=== PATIENT | male | born 1975 | race Caucasian/White ===

== ENCOUNTER 2018-06-25 02:32 | Emergency (ER) | payer BC, MEDICAID ==
[~2018-06-25] VITALS: Ht 172.7 cm; Wt 72.6 kg
[2018-06-25 02:39] VITALS: BP 158/114
[2018-06-25] MEDS ORDERED: LORAZEPAM 0.5 MG TABLET ONE (03:09)
[2018-06-25] MEDS ORDERED: LORAZEPAM 0.5 MG TABLET PO ONE (03:30)
== END 2018-06-25 04:24 | disposition home or self-care (01) ==
LOC: ER 02:36
DX: F41.9 Anxiety disorder, unspecified (principal); J40 Bronchitis, not specified as acute or chronic

== ENCOUNTER 2021-10-10 21:01 | Emergency (ER) | payer BC ==
[~2021-10-10] VITALS: Ht 172.7 cm; Wt 65.8 kg
[2021-10-10 21:24] VITALS: BP 183/122
[2021-10-10] MEDS ORDERED: AMOX-430 PO (22:06)
== END 2021-10-10 22:10 | disposition home or self-care (01) ==
LOC: ER 21:04
DX: J31.0 Chronic rhinitis (principal); J32.9 Chronic sinusitis, unspecified

== ENCOUNTER 2021-11-06 21:39 | Emergency (ER) | payer BC ==
[~2021-11-06] VITALS: Ht 172.7 cm; Wt 63.5 kg
[~2021-11-06 21:39] MED LIST: AMOX-430 PO
--- NOTE | 2021-11-06 22:13 | NUR ---
BIBFRIEND. FEELING SOB AND WEEK TODAY. TWITCHING SENSATION MID CHEST. PT AWAKE AND ALERT BREATHING EVEN AND UNLABORED. ASSISTED TO ER 12 AND PLACED ON MONITOR AND V/S WNL.
[2021-11-06] MEDS ORDERED: IV NS 0.9% 1,000 ML BAG IV ONE (22:30)
--- NOTE | 2021-11-06 22:31 | NUR ---
BLOOD COLLECTED AND SENTT O LAB
--- NOTE | 2021-11-06 22:33 | NUR ---
COVID SWAB DONE AND SENT TO LAB
[2021-11-06 23:15] LABS: BASOPHILS # (AUTO) 0.1 K/uL (0.0-0.2); BASOPHILS % (AUTO) 0.8 % (0.0-2.0); EOSINOPHILS % (AUTO) 7.9 % (0.0-6.0); HEMATOCRIT 42 % (39-51); HEMOGLOBIN 14.1 g/dL (13.5-17.5); LYMPHOCYTES # (AUTO) 2.8 K/uL (0.8-4.8); LYMPHOCYTES % (AUTO) 31.9 % (20.0-44.0); MEAN CORPUSCULAR HGB CONC 33 g/dl (31.0-36.0); MEAN CORPUSCULAR VOLUME 93 fL (80-96); MONOCYTES # (AUTO) 0.7 K/uL (0.1-1.30); MONOCYTES % (AUTO) 7.6 % (2.0-12.0); NEUTROPHILS # (AUTO) 4.5 K/uL (1.8-8.9); NEUTROPHILS % (AUTO) 51.8 % (43.0-81.0); PLATELET COUNT (AUTO) 184 K/uL (150-450); RED BLOOD CELL COUNT(AUTO) 4.55 MIL/uL (4.5-6.0); WHITE BLOOD COUNT (AUTO) 8.7 K/uL (4.3-11.0)
[2021-11-06 23:41] LABS: ALANINE AMINOTRANSFERASE 15 U/L (12-78); ALBUMIN 4.4 g/dL (3.4-5.0); ALKALINE PHOSPHATASE 69 U/L (46-116); ASPARTATE AMINOTRANSFERASE 11 U/L (15-37); BILIRUBIN,DIRECT 0.2 mg/dL (0.0-0.2); BILIRUBIN,TOTAL 0.7 mg/dL (0.2-1.0); CALCIUM, SERUM 9.7 mg/dL (8.5-10.1); CARBON DIOXIDE 26 mmol/L (21-32); CHLORIDE 107 mmol/L (98-107); GLUCOSE 72 mg/dL (74-106); POTASSIUM 3.2 mmol/L (3.5-5.1); SODIUM SERUM 143 mmol/L (136-145); UREA NITROGEN, BLOOD 9 mg/dL (7-18)
--- NOTE | 2021-11-07 00:01 | NUR ---
Patient discharged to home in stable condition. Written and verbal after care instructions given. Patient verbalizes understanding of instruction.
[2021-11-07 00:02] VITALS: BP 145/97
== END 2021-11-07 00:02 | disposition home or self-care (01) ==
LOC: ER 21:51
DX: R53.1 Weakness (principal); F41.9 Anxiety disorder, unspecified; Z20.822 Contact with and (suspected) exposure to COVID-19; R03.0 Elevated blood-pressure reading, without diagnosis of hypertension
CPT/HCPCS: 99285; 96360; 71045; 87426; 93005; 85025; 80048; 80076; 36415; 84484; 85730; J7030; C9803